=== PATIENT | male | born 1990 | race Caucasian/White ===

== ENCOUNTER 2017-01-22 00:55 | Emergency (ER) | payer OTHER ==
[2017-01-22 01:09] VITALS: BP 125/95; PULSE 90; TEMP 97.8; BMI 16.6
--- NOTE | 2017-01-22 01:38 | PDOC ---
[id number] 01/22/17 01:07 01/22/17 01:07 01/22/17 01:07 01/22/17 01:07 01/22/17 01:07 - Physical Exam Comments: 01/22/17 01:38 The patient was examined by TABITHA Vigil under my direct supervision. I personally evaluated the patient. I concur with the above findings and the plan of care. *DC/Admit/Observation/Transfer Diagnosis at time of Disposition: Head injury - Discharge Dispostion Disposition: HOME Condition at time of disposition: Good - Patient Instructions Printed Discharge Instructions: DI for Closed Head Injury Additional Instructions: FOLLOW UP WITH YOUR PRIMARY CARE PROVIDER THIS WEEK FOR FURTHER EVALUATION. CALL TO SCHEDULE APPOINTMENT. MOTRIN OR TYLENOL FOR PAIN NEEDED. GET PLENTY REST. RETURN IN 5 DAYS FOR MORIAH REMOVAL. YOU MAY SHOWER WITHOUT RESTRICTIONS. APPLY BACITRACIN DAILY AND NEEDED. Print Language: BULGARIAN - Post Discharge Activity Work/School Note: Back to Work
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
[2017-01-22] MEDS ORDERED: TETANUS AND DIPHTHERIA TOXOID 0.5 ML DISP.SYRIN IM ONE (04:11)
== END 2017-01-22 04:20 | disposition home or self-care (01) ==
LOC: JER 00:55
PROC: 0HQ0XZZ Repair Scalp Skin, External Approach (ICD-10-PCS; principal; 2017-01-22)
PROC: 3E0234Z Introduction of Serum, Toxoid and Vaccine into Muscle, Percutaneous Approach (ICD-10-PCS; 2017-01-22)
DX: S01.01XA Laceration without foreign body of scalp, initial encounter (principal); Y04.2XXA Assault by strike against or bumped into by another person, initial encounter; Y93.89 Activity, other specified; Y92.89 Other specified places as the place of occurrence of the external cause; Y99.8 Other external cause status; Y07.9 Unspecified perpetrator of maltreatment and neglect
CPT/HCPCS: 12001-25; 70450-TC; 72125-TC; 90471; 90715; 99281-25

== ENCOUNTER 2017-01-27 17:51 | Emergency (ER) | payer OTHER ==
[2017-01-27 17:56] VITALS: BP 108/57; PULSE 90; TEMP 97.9; BMI 17.4
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
== END 2017-01-27 18:30 | disposition home or self-care (01) ==
LOC: JERFT 17:51
DX: Z48.02 Encounter for removal of sutures (principal)
CPT/HCPCS: 99281-25

== ENCOUNTER 2018-08-11 12:11 | Emergency (ER) | payer OTHER ==
[2018-08-11 12:24] VITALS: BP 97/64; PULSE 62; TEMP 98.2; BMI 18.6
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
== END 2018-08-11 14:26 | disposition home or self-care (01) ==
LOC: JERFT 12:11
PROC: 0JQJ0ZZ Repair Right Hand Subcutaneous Tissue and Fascia, Open Approach (ICD-10-PCS; principal; 2018-08-11)
DX: S61.216A Laceration without foreign body of right little finger without damage to nail, initial encounter (principal); W01.110A Fall on same level from slipping, tripping and stumbling with subsequent striking against sharp glass, initial encounter; Y93.89 Activity, other specified; Y92.038 Other place in apartment as the place of occurrence of the external cause; Y99.8 Other external cause status
CPT/HCPCS: 12001; 99282-25

== ENCOUNTER 2018-08-21 09:45 | Emergency (ER) | payer OTHER ==
[2018-08-21 10:06] VITALS: BP 95/47; PULSE 67; TEMP 98.8; BMI 18.1
--- NOTE | 2018-08-21 11:24 | PDOC ---
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 He has no other comorbities, presents for evaluation of pain about the R great toe x1 day without systemic symptoms Past History - Past Medical History Allergies/Adverse Reactions: Allergies Allergy/AdvReac Type Severity Reaction Status Date / Time amoxicillin Allergy Verified 08/21/18 10:00 Home Medications: Ambulatory Orders Clindamycin HCl 300 mg PO TID #21 capsule 08/21/18 Nystatin Cream [Mycostatin Cream -] 1 applic TP BID #1 applic 08/21/18 COPD: No - Surgical History Neurologic Surgery: Yes (neck/back) - Immunization History Immunization Up to Date: Yes - Suicide/Smoking/Psychosocial Hx Smoking History: Never smoked Have you smoked in the past 12 months: Yes Hx Alcohol Use: No Drug/Substance Use Hx: No Substance Use Type: None Review of Systems - Review of Systems Constitutional: No: Fever, Malaise, Night Sweats Musculoskeletal: Yes: See HPI, Joint Pain Integumentary: Yes: Erythema *Physical Exam - Vital Signs Last Vital Signs Temp Pulse Resp BP Pulse Ox 98.8 F 67 18 95/47 L 99 08/21/18 10:00 08/21/18 10:00 08/21/18 10:00 08/21/18 10:00 08/21/18 10:00 - Physical Exam Comments: Right foot skin color and temperature are normal there is erythema in the first webspace with tinea infection between the first and second toes there is no pain with passive motion of the toes there is no sensitivity there is blanching erythema with warmth no induration or fluctuance 08/21/18 11:23 Medical Decision Making - Medical Decision Making 08/21/18 11:23 This appears to be a cellulitis of the right foot I will place him on a course of clindamycin and have him follow-up with podiatry and his primary care physician *DC/Admit/Observation/Transfer Diagnosis at time of Disposition: Cellulitis of foot, right - Discharge Dispostion Disposition: HOME Condition at time of disposition: Stable Decision to Admit order: No - Prescriptions Prescriptions: Clindamycin HCl 300 mg PO TID #21 capsule Nystatin Cream [Mycostatin Cream -] 1 applic TP BID #1 applic - Referrals Referrals: Toño Gomez MD [Primary Care Provider] - Zan Caban MD [Staff Physician] - - Patient Instructions Printed Discharge Instructions: DI for Cellulitis -- Adult, Cellulitis Additional Instructions: Return to the emergency room should symptoms worsen or go unresolved. Please start the antibiotics and take the entire course as directed. Take Tylenol for pain. Follow-up with your primary care physician as well as podiatry in 1-2 days for further evaluation and treatment options. - Post Discharge Activity
== END 2018-08-21 11:34 | disposition home or self-care (01) ==
LOC: JERFT 09:45
DX: L03.115 Cellulitis of right lower limb (principal); B35.3 Tinea pedis
CPT/HCPCS: 99281-25